=== PATIENT | male | born 1975 | race Two or more races ===

== ENCOUNTER 2020-09-03 07:17 | Outpatient (CLI) | payer OTHER | END 2020-09-03 23:59 | disposition home or self-care (01) | LOC: LAB 07:17 | PROVIDERS: ATTEND Orthopaedic Surgery | DX: Z01.812 Encounter for preprocedural laboratory examination (principal); Z20.828 Contact with and (suspected) exposure to other viral communicable diseases; M75.121 Complete rotator cuff tear or rupture of right shoulder, not specified as traumatic ==

== ENCOUNTER 2020-09-04 12:00 | Outpatient (CLI) | payer OTHER ==
[2020-09-04 10:39] LABS: *BLOOD, URINE NEGATIVE (NEGATIVE); *CLARITY,URINE CLEAR (CLEAR); *COLOR,URINE YELLOW (YELLOW); *KETONES,URINE TRACE (NEGATIVE); *UROBILINOGEN,URINE 0.2 E.U./dl (NORMAL); LEUKOCYTE ESTERASE ,URINE NEGATIVE (NEGATIVE); NITRITE, URINE NEGATIVE (NEGATIVE); PH,URINE 5.5 (5.0-8.0)
[2020-09-04 10:53] LABS: CARBON DIOXIDE 29 mmol/L (21-32); CHLORIDE 108 mmol/L (98-107); GLUCOSE 233 mg/dL (74-106); POTASSIUM 4.8 mmol/L (3.5-5.1); UREA NITROGEN, BLOOD 12 mg/dL (7-18)
[2020-09-04 10:55] LABS: *BILIRUBIN,URIN 1+ (NEGATIVE); UGLUCOSE 2+ (NEGATIVE)
[2020-09-04 10:59] LABS: ALANINE AMINOTRANSFERASE 14 U/L (16-63); ALKALINE PHOSPHATASE 132 U/L (50-136); BILIRUBIN,TOTAL 0.3 mg/dL (0.2-1.0)
[2020-09-04 11:04] LABS: BASOPHILS # (AUTO) 0.1 K/uL (0.0-8.0); BASOPHILS % (AUTO) 0.6 % (0.0-2.0); EOSINOPHILS # (AUTO) 0.4 K/uL (0.0-0.7); EOSINOPHILS % (AUTO) 3.6 % (0.0-7.0); HEMATOCRIT 50.1 % (36.7-47.1); HEMOGLOBIN 17.2 g/dL (12.5-16.3); LYMPHOCYTES % (AUTO) 24.8 % (20.5-51.5); MEAN CORPUSCULAR HEMOGLOBIN 31.7 uug (23.8-33.4); MEAN CORPUSCULAR HGB CONC 34 g/dL (32.5-36.3); MEAN CORPUSCULAR VOLUME 92.5 fL (73.0-96.2); MONOCYTES # (AUTO) 0.6 K/uL (2.0-10.0); MONOCYTES % (AUTO) 5.3 % (0.0-11.0); NEUTROPHILS # (AUTO) 8.1 K/uL (1.8-8.9); NEUTROPHILS % (AUTO) 65.7 % (38.5-71.5); PLATELET COUNT (AUTO) 270 K/uL (152-348); RED BLOOD CELL COUNT(AUTO) 5.42 MIL/uL (4.06-5.63); WHITE BLOOD COUNT (AUTO) 12.3 K/uL (3.6-10.2)
[2020-09-04 11:35] LABS: ASPARTATE AMINOTRANSFERASE < 5 U/L (15-37)
[2020-09-04 13:50] LABS: BACTERIA,URINE NONE SEEN /HPF (NONE SEEN); RBC,URINE NONE SEEN /HPF (0-3); SQUAMOUS EPITHELIAL CELL,UR FEW /HPF (NONE SEEN); WBC,URINE 0-3 /HPF (0-3)
== END 2020-09-04 23:59 | disposition home or self-care (01) ==
LOC: LAB 12:00
PROVIDERS: ATTEND Internal Medicine
DX: Z01.812 Encounter for preprocedural laboratory examination (principal); M75.121 Complete rotator cuff tear or rupture of right shoulder, not specified as traumatic; M19.011 Primary osteoarthritis, right shoulder
CPT/HCPCS: 36415; 85025; 85730; A4663

== ENCOUNTER 2020-09-06 05:53 | Day surgery (SDC) | payer OTHER ==
[2020-09-06] MEDS ORDERED: PROPOFOL 200 MG/20 ML BOTTLE IV ONE (05:54)
[2020-09-06] MEDS ORDERED: LIDOCAINE-MPF 2% 5 ML VIAL IJ ONE (05:54)
[2020-09-06] MEDS ORDERED: VECURONIUM BROMIDE 10 MG VIAL IV ONE (05:54)
[2020-09-06] MEDS ORDERED: ONDANSETRON 4 MG/2 ML VIAL IV ONE (05:54)
[2020-09-06] MEDS ORDERED: EPHEDRINE SULFATE 50 MG/ML AMPUL IM ONE (05:54)
[2020-09-06] MEDS ORDERED: SEVOFLURANE 250 ML BOTTLE IH ONE (05:54)
[2020-09-06] MEDS ORDERED: CEFAZOLIN 1 G VIAL IM ONE (05:54)
[2020-09-06] MEDS ORDERED: IV NORMAL SALINE 1000 ML BAG IV ONE (05:54)
[2020-09-06] MEDS ORDERED: DEXAMETHASONE SOD PHOSPHATE 4 MG INJ IV ONE (05:54)
[2020-09-06] MEDS ORDERED: BUPIVACAINE/EPI PF 0.5% 10 ML VIAL ONE (07:20)
[2020-09-06] MEDS ORDERED: POLYMYXIN B SULFATE 500,000 UNITS, BACITRACIN 50,000 UNITS, NORMAL SALINE 20 ML MC ONE ×3 (07:30)
[2020-09-06] MEDS ORDERED: MIDAZOLAM HCL 10 MG/2 ML VIAL ONE (07:49)
[2020-09-06] MEDS ORDERED: FENTANYL CITRATE 100 MCG/2 ML AMPUL ONE (07:49)
[2020-09-06] MEDS ORDERED: BUPIVACAINE/EPI PF 0.25% 30 ML VIAL ONE (07:49)
[2020-09-06] MEDS ORDERED: CLINDAMYCIN PHOSPHATE 900 MG/6 ML VIAL ONE (09:00)
[2020-09-06] MEDS ORDERED: BACITRACIN/POLYMYXIN B OINT 15 GM TUBE ONE (09:51)
== END 2020-09-06 12:09 | disposition home or self-care (01) ==
LOC: DS 05:53
PROVIDERS: ATTEND Orthopaedic Surgery
DX: M75.101 Unspecified rotator cuff tear or rupture of right shoulder, not specified as traumatic (principal); M24.811 Other specific joint derangements of right shoulder, not elsewhere classified; E11.9 Type 2 diabetes mellitus without complications; M19.90 Unspecified osteoarthritis, unspecified site; Z79.899 Other long term (current) drug therapy; Z79.84 Long term (current) use of oral hypoglycemic drugs; Z98.890 Other specified postprocedural states; Z88.0 Allergy status to penicillin
CPT/HCPCS: A4565; A4649; C1713; J0690; J1100; J2250; J2405; J3010; J3490; J7030